=== PATIENT | male | born 1985 | race Caucasian/White ===

== ENCOUNTER 2017-03-06 18:19 | Inpatient (IN) | payer OTHER ==
[~2017-03-06] VITALS: Ht 172.7 cm; Wt 101.5 kg
[~2017-03-06 18:19] MED LIST: IBUP-1542 PO; RIFA300C3 PO; SULF1TAB7 PO
[2017-03-06] MEDS ORDERED: ACETAMINOPHEN 500 MG TAB PO STA (21:19)
[2017-03-06] MEDS ORDERED: SOD CHLORIDE 0.9% 1,000 ML IV STA (21:42)
[2017-03-06] MEDS ORDERED: morphine 4 MG/ML VIAL IV STA (21:52)
[2017-03-06] MEDS ORDERED: ONDANSETRON 4 MG INJ IV STA (21:52)
[2017-03-06 22:07] LABS: ADD SCAN DIFF NO
[2017-03-06 22:15] LABS: ABNORMAL IP MESSAGE 1; HEMATOCRIT 44.5 % (42.0-52.0); HEMOGLOBIN 15.5 g/dl (14.0-18.0); MEAN CORPUSCULAR HEMOGLOBIN 31.1 pg (29.0-33.0); MEAN CORPUSCULAR HGB CONC 34.8 g/dl (32.0-37.0); MEAN CORPUSCULAR VOLUME 89.4 fl (82.0-101.0); MEAN PLATELET VOLUME 11.6 fl (7.4-10.4); PLATELET COUNT 164 10^3/UL (140-415); RED BLOOD COUNT 4.98 10^6/ul (4.70-6.10); RED CELL DISTRIBUTION WIDTH 12.4 % (11.5-14.5); WHITE BLOOD COUNT 20.3 10^3/ul (4.8-10.8)
[2017-03-06] MEDS ORDERED: ACETAMINOPHEN 325 MG TAB PO STA (22:18)
[2017-03-06] MEDS ORDERED: SODIUM CHLORIDE 0.9% 1L BAG IV* STA (22:18)
[2017-03-06 22:20] LABS: ALBUMIN 4.8 g/dl (3.3-4.9); INR 1.04; PROTIME 13.6 Sec (12.2-14.2); PT RATIO 1.1
[2017-03-06 22:21] LABS: CHLORIDE 95 mmol/L (97-110); PARTIAL THROMBOPLASTIN TIME 30.6 Sec (25.0-35.0); POTASSIUM 3.6 mmol/L (3.5-5.1); SODIUM 136 mmol/L (135-144)
[2017-03-06 22:23] LABS: ALBUMIN/GLOBULIN RATIO 1.23; AMYLASE 64 U/L (11-123); ANION GAP 19 (8-16); ASPARTATE AMINO TRANSFERASE 42 IU/L (15-46); BILIRUBIN,INDIRECT 0.8 mg/dl (0-1.1); BILIRUBIN,TOTAL 0.8 mg/dl (0.2-1.3); BLOOD UREA NITROGEN 12 mg/dl (7-20); CARBON DIOXIDE 26 mmol/L (21-31); CREATININE 0.88 mg/dl (0.61-1.24); TOTAL PROTEIN 8.7 g/dl (6.1-8.1)
[2017-03-06 22:24] LABS: ALANINE AMINOTRANSFERASE 57 IU/L (13-69); ALKALINE PHOSPHATASE 92 IU/L (42-121); CALCIUM 9.4 mg/dl (8.4-10.2); GLUCOSE 129 mg/dl (70-220)
[2017-03-06 22:35] LABS: TROPONIN-I < 0.012 ng/ml (0.00-0.12)
[2017-03-06 22:40] LABS: EOSINOPHILS # 0.2 10^3/ul (0.0-0.5); NEUTROPHIL # 18.1 10^3/ul (1.6-7.5)
--- NOTE | 2017-03-06 23:18 | RADRPT ---
PROCEDURE: CT ABDOMEN/PELVIS WITHOUT CONTRAST CLINICAL INDICATION: 31-year-old male with bilateral flank pain. TECHNIQUE: The study was performed utilizing a GE [employer] VCT 64-slice CT scanner. Direct axia l sections were obtained through the abdomen and pelvis without the use of intravenous contrast mate rial. Sagittal and coronal reformations were obtained. One or more of the following dose reduction t echniques were utilized: automated exposure control, adjustment of the mA and/or kV according to pat ient's size or use of iterative reconstruction technique. The images were [facility] CTD/vol = 19.5 mGy; Total Exam DLP = 1272.7 mGy-cm. COMPARISON: None. FINDINGS: The lung bases are unremarkable. There is no evidence for significant pleural effusion. The liver has a normal size and contour. There is diffuse decreased density throughout the liver consistent w ith fatty infiltration without focal areas of abnormal density. No intrahepatic nor extrahepatic lisy iary ductal dilatation is seen. There is dependent increased density within the gallbladder presumab ly representing sludge without significant wall thickening or pericholecystic fluid. There is no ev idence for calcified gallstones. The pancreas is without areas of abnormal attenuation. The spleen is identified and has a normal size without abnormal density. The adrenal glands are unremarkable. The kidneys are without abnormal density. No hydroureteronephrosis nor nephroureterolithiasis is melanie dent. The urinary bladder contains urine. There is no evidence for bowel obstruction. The appendix is visualized and is without abnormal thickening or surrounding inflammatory reaction. There is no significant pelvic free fluid. The prostate is not enlarged. The aortoiliac vessels are without an eurysmal dilatation. There are minimal bilateral inguinal hernias containing fat. The osseous struct ures are intact. IMPRESSION: 1. Diffuse fatty infiltration of the liver. 2. Probable layering sludge within the gallbladder. 3. No CT evidence for obstructive uropathy or renal calculi. 4. No CT evidence for appendicitis. 5. Minimal bilateral inguinal hernias containing fat. .Victor Hugo Larson MD, MD Date Time Electronically viewed and signed by .Victor Hugo Larson MD, MD on 03/06/2017 23:18 .Lito
[2017-03-06] MEDS ORDERED: CEFTRIAXONE 1 GM/50 ML (PMX) 50 ML IVPB STA (23:35)
[2017-03-07 00:08] LABS: ADD UMIC YES; URINE BILIRUBIN (Dip) 1+ (NEGATIVE); URINE BLOOD (Dip) 3+ (NEGATIVE); URINE COLOR YELLOW (YELLOW); URINE GLUCOSE (Dip) NEGATIVE (NEGATIVE); URINE KETONES (Dip) NEGATIVE (NEGATIVE); URINE LEUKOCYTE ESTERASE (Dip) NEGATIVE (NEGATIVE); URINE NITRITE (Dip) NEGATIVE (NEGATIVE); URINE TOTAL PROTEIN (Dip) 1+ (NEGATIVE); URINE UROBILINOGEN (Dip) 0.2 E.U./dL (0.1-1.0)
[2017-03-07 00:18] VITALS: TEMP 99.4
[2017-03-07 00:18] LABS: ICTOTEST NEGATIVE (NEGATIVE); SQUAMOUS EPITHELIAL CELL,UR FEW
[2017-03-07 00:19] LABS: BACTERIA,URINE RARE; MUCUS,URINE MODERATE
--- NOTE | 2017-03-07 00:23 | ERA ---
ER Documentation Chief Complaint Date/Time DATE: 03/07/17 TIME: 00:22 Chief Complaint back pain x 1 day, fever HPI Back pain for 1 day along with fever. He has had bilateral flank pain. Worse on the right. No nausea no vomiting. Pain is mild to moderate intensity. Fevers that started yesterday and got progressively worse. No other current complaints. Patient does have history of diabetes. ROS All systems reviewed and are negative except as per history of present illness. Medications Home Meds Discontinued Scripts Ibuprofen* (Ibuprofen*) 600 Mg Tablet, 600 MG PO Q6H Y for PA, #30 TAB Prov:BERT MUSE GUM DIPPER 08/25/15 Rifampin* (Rifampin*) 300 Mg Capsule, 300 MG PO BID, #6 CAP Prov:BERT MUSE GUM DIPPER 08/25/15 Sulfamethoxazole-Trimethoprim* (Bactrim* DS) 800-160 Mg Tab, 1 TAB PO BID for 10 Days, TAB Prov:BERT MUSE NP 08/25/15 Allergies Allergies: Coded Allergies: No Known Allergies (Verified Allergy, Unknown, 03/06/17) PMhx/Soc History of Surgery: No Anesthesia Reaction: No Hx Neurological Disorder: No Hx Respiratory Disorders: No Hx Cardiac Disorders: No Hx Psychiatric Problems: No Hx Miscellaneous Medical Probl: No Hx Alcohol Use: Yes Hx Substance Use: No Hx Tobacco Use: Yes Smoking Status: Current every day smoker Physical Exam Vitals Vital Signs Date Time Temp Pulse Resp B/P Pulse Ox O2 Delivery O2 Flow Rate FiO2 03/07/17 00:18 99.4 110 18 116/80 96 2.0 03/06/17 22:22 101.5 117 24 116/76 95 Room Air 03/06/17 21:25 103.2 139 17 133/89 96 Room Air 03/06/17 18:46 101.9 140 20 136/93 100 Physical Exam Const: [] Head: Atraumatic Eyes: Normal Conjunctiva ENT: Normal External Ears, Nose and Mouth. Neck: Full range of motion..~ No meningismus. Resp: Clear to auscultation bilaterally Cardio: Regular rate and rhythm, no murmurs Abd: Soft, non tender, non distended. Normal bowel sounds Skin: No petechiae or rashes Back: No midline or flank tenderness Ext: No cyanosis, or edema Neur: Awake and alert Psych: Normal Mood and Affect Result Diagram: 03/06/17214903/06/172149 Results 24 hrs Laboratory Tests Test 03/06/17 21:50 White Blood Count 20.310^3/ul Red Blood Count 4.9810^6/ul Hemoglobin 15.5g/dl Hematocrit 44.5% Mean Corpuscular Volume 89.4fl Mean Corpuscular Hemoglobin 31.1pg Mean Corpuscular Hemoglobin Concent 34.8g/dl Red Cell Distribution Width 12.4% Platelet Count 95575^3/UL Mean Platelet Volume 11.6fl Neutrophils % 89.0% Lymphocytes % 5.0% Monocytes % 5.0% Eosinophils % 1.0% Neutrophils # 18.110^3/ul Lymphocytes # 1.010^3/ul Monocytes # 1.010^3/ul Eosinophils # 0.210^3/ul Prothrombin Time 13.6Sec Prothrombin Time Ratio 1.1 INR International Normalized Ratio 1.04 Activated Partial Thromboplast Time 30.6Sec Urine Color YELLOW Urine Clarity SL HAZY Urine pH 5.5 Urine Specific Mayer 1.025 Urine Ketones NEGATIVE Urine Nitrite NEGATIVE Urine Bilirubin 1+ Urine Ictotest NEGATIVE Urine Urobilinogen 0.2 E.U./dL Urine Leukocyte Esterase NEGATIVE Urine Microscopic RBC 2-5/HPF Urine Microscopic WBC 0-2/HPF Urine Squamous Epithelial Cells FEW Urine Bacteria RARE Urine Mucus MODERATE Urine Hemoglobin 3+ Urine Glucose NEGATIVE% Urine Total Protein 1+ Sodium Level 136mmol/L Potassium Level 3.6mmol/L Chloride Level 95mmol/L Carbon Dioxide Level 26mmol/L Anion Gap 19 Blood Urea Nitrogen 12mg/dl Creatinine 0.88mg/dl Glucose Level 129mg/dl Lactic Acid Level 1.4mmol/L Calcium Level 9.4mg/dl Total Bilirubin 0.8mg/dl Direct Bilirubin 0.00mg/dl Indirect Bilirubin 0.8mg/dl Aspartate Amino Transf (AST/SGOT) 42IU/L Alanine Aminotransferase (ALT/SGPT) 57IU/L Alkaline Phosphatase 92IU/L Troponin I < 0.012ng/ml Total Protein 8.7g/dl Albumin 4.8g/dl Globulin 3.90g/dl Albumin/Globulin Ratio 1.23 Amylase Level 64U/L Lipase 45U/L Current Medications Medications (Trade) Dose Ordered Sig/Fercho Route PRN Reason Start Time Stop Time Status Last Admin Dose Admin Acetaminophen 1000 mg 1,000 mg ONCE STAT PO 03/06/17 21:19 03/06/17 21:20 DC 03/06/17 21:30 Sodium Chloride (NS) 1,000 ml @ 1,000 mls/hr Q1H STAT IV 03/06/17 21:42 03/06/17 22:41 DC 03/06/17 21:47 Morphine Sulfate (morphine) 4 mg ONCE STAT IV 03/06/17 21:52 03/06/17 21:53 DC 03/06/17 22:05 Ondansetron HCl (Zofran Inj) 4 mg ONCE STAT IV 03/06/17 21:52 03/06/17 21:53 DC 03/06/17 22:04 Sodium Chloride (NS) 3,150 ml BOLUS OVER 2 HOURS STAT IV* 03/06/17 22:18 03/06/17 22:20 DC 03/06/17 22:34 Acetaminophen 650 mg 650 mg ONCE STAT PO 03/06/17 22:18 03/06/17 22:20 DC Ceftriaxone Sodium (Rocephin) 50 ml @ 100 mls/hr ONCE STAT IVPB 03/06/17 23:35 03/07/17 00:04 DC 03/06/17 23:55 Procedures/MDM Medical decision-makin-year-old male looks to be early pyelonephritis. No evidence of sepsis. Patient started on Rocephin. Cultures pending. Fluids given. Patient admitted to Dr. Flores. Chest X-ray 1V Interpreted by me: Soft Tissue: No acute abnormalities Bones: No acute abnormalities Mediastinum/Cardiac Silhouette/Lungs: No acute abnormalities EKG: Rate/Rhythm: [Normal Sinus Rhythm] QRS, ST, T-waves: [No changes consistent w/ acute ischemia] Impression: [No evidence of ischemia or arrhythmia] Departure Diagnosis: Primary Impression: Pyelonephritis Condition: Serious ANGELO SANDERS Mar 07, 2017 00:23
[2017-03-07 00:30] VITALS: BP 133/70; PULSE 110; RESP 20
[2017-03-07 00:37] VITALS: BP 133/70; RESP 18
[2017-03-07 00:44] VITALS: Ht 172.7 cm; Wt 101.5 kg
[2017-03-07] MEDS ORDERED: ACETAMINOPHEN 325 MG TAB PO PRN (01:30)
[2017-03-07] MEDS ORDERED: ONDANSETRON 4 MG INJ IV PRN (01:30)
[2017-03-07] MEDS: DEXTROSE 5%-0.9% NACL 1,000 ML IV SCH ×2 (01:36→16:02)
[2017-03-07] MEDS: morphine 4 MG/ML VIAL IV PRN ×2 (01:37→23:08)
[2017-03-07 06:04] LABS: ADD SCAN DIFF NO
[2017-03-07 06:20] LABS: ABNORMAL IP MESSAGE 1; BASOPHILS % 0.1 % (0.0-2.0); HEMATOCRIT 41.2 % (42.0-52.0); HEMOGLOBIN 14.1 g/dl (14.0-18.0); LYMPHOCYTES # 1.6 10^3/ul (0.8-2.9); MEAN CORPUSCULAR HEMOGLOBIN 30.9 pg (29.0-33.0); MEAN CORPUSCULAR HGB CONC 34.2 g/dl (32.0-37.0); MEAN CORPUSCULAR VOLUME 90.4 fl (82.0-101.0); MEAN PLATELET VOLUME 11.3 fl (7.4-10.4); MONOCYTE # 1.5 10^3/ul (0.3-0.9); MONOCYTES % 8.8 % (0.0-11.0); NEUTROPHIL # 14.2 10^3/ul (1.6-7.5); NEUTROPHILS % 81.3 % (39.0-77.0); PLATELET COUNT 144 10^3/UL (140-415); RED BLOOD COUNT 4.56 10^6/ul (4.70-6.10); RED CELL DISTRIBUTION WIDTH 12.6 % (11.5-14.5); WHITE BLOOD COUNT 17.5 10^3/ul (4.8-10.8)
[2017-03-07 06:34] LABS: POTASSIUM 3.5 mmol/L (3.5-5.1)
[2017-03-07 06:36] LABS: ALBUMIN/GLOBULIN RATIO 1.14; BILIRUBIN,INDIRECT 0.6 mg/dl (0-1.1); BILIRUBIN,TOTAL 0.6 mg/dl (0.2-1.3); CREATININE 0.74 mg/dl (0.61-1.24); TOTAL PROTEIN 7.5 g/dl (6.1-8.1)
[2017-03-07 06:37] LABS: CALCIUM 8.5 mg/dl (8.4-10.2)
[2017-03-07] MEDS: PANTOPRAZOLE (EC) 40 MG TAB PO SCH (06:38)
[2017-03-07 07:25] VITALS: BP 127/67; RESP 19
[2017-03-07] MEDS: GUAIFENESIN/DM 5ML CUP PO PRN ×2 (17:15→23:07)
--- NOTE | 2017-03-07 18:44 | QN ---
Documentation Comment [id number] JO KENNEDY MD Mar 07, 2017 18:44
--- NOTE | 2017-03-07 19:20 | HP ---
DATE OF ADMISSION: 03/06/2017 HISTORY OF PRESENT ILLNESS: The patient is a 31-year-old male who has no significant past medical h istory, presented to this hospital complaining of abdominal pain, back pain, cough, URI symptoms. T he patient, in the ER, was seen, noted to have leukocytosis. WBC 20.7, hematocrit 44.5, platelet co unt of 164. The patient's potassium ____.[address] scan of the abdomen and pelvis done shows diffu se fatty infiltration of the liver, biliary sludge the gallbladder, no CT evidence for obstructive u ropathy, no CT evidence for appendicitis, minimal bilateral inguinal hernias containing fat. The waqas riley's chest x-ray has been ordered, which is not done. The patient is going to be admitted for fu rther management. PAST MEDICAL HISTORY: Diabetes, hypertension. ALLERGY HISTORY: NEGATIVE. FAMILY HISTORY: Negative. SOCIAL HISTORY: Negative at this point. REVIEW OF SYSTEMS: HEENT: Unremarkable. RESPIRATORY: URI symptoms. CARDIOVASCULAR: No chest pain, palpitation. ABDOMEN AND BACK: Pain resolving. PHYSICAL EXAMINATION: GENERAL: Overweight, obese male, awake, alert. VITAL SIGNS: Stable. HEAD: Atraumatic, normocephalic. Pupils equal, reactive to light. NECK: Supple. No JVD. LUNGS: Clear. CARDIOVASCULAR: S1, S2 normal. ABDOMEN: Soft, nontender. Bowel sounds present. No palpable mass or hepatosplenomegaly. No guard ing, rebound tenderness. EXTREMITIES: No cyanosis, clubbing, or edema. CENTRAL NERVOUS SYSTEM: The patient is awake, alert. No focal deficit. LABORATORY DATA: As mentioned above. IMPRESSION: 1. Systemic inflammatory response syndrome. 2. Status post abdominal pain. 3. Fatty liver. 4. The patient has leukocytosis. 5. The patient has obesity. PLAN: To give this patient IV fluid, empiric antibiotic, follow up on laboratory data. Chest x-ray will be checked. Orders were done. Dictated By: JO ROSALES/NTS Conf#: [id number] DID#: [id number]
[2017-03-07 20:03] VITALS: BP 128/70; RESP 20
--- NOTE | 2017-03-07 22:13 | RADRPT ---
PROCEDURE: XR Chest. CLINICAL INDICATION: Shortness of breath TECHNIQUE: PA and Lateral views of the chest were obtained. COMPARISON: None. FINDINGS: The cardiomediastinal silhouette is within normal limits of size .. Atherosclerotic calcification of the aorta. The lungs are clear without pleural effusion or focal consolidation. No pneumothorax. The osseous structures and soft tissues are unremarkable. IMPRESSION: 1. No evidence for active cardiopulmonary disease. RPTAT:AAJJ Physician Nerissa Date Time Electronically viewed and signed by Physician Nerissa on 03/07/2017 22:12 YNES/
[2017-03-07] MEDS: CEFTRIAXONE 1 GM/50 ML (PMX) 50 ML IVPB SCH (23:07)
[2017-03-08] MEDS: PANTOPRAZOLE (EC) 40 MG TAB PO SCH (05:48)
[2017-03-08] MEDS: DEXTROSE 5%-0.9% NACL 1,000 ML IV SCH ×3 (05:48→23:16)
[2017-03-08 05:49] LABS: ADD SCAN DIFF NO
[2017-03-08 05:54] LABS: BASOPHILS % 0.2 % (0.0-2.0); EOSINOPHILS # 0.1 10^3/ul (0.0-0.5); EOSINOPHILS % 0.7 % (0.0-7.0); HEMATOCRIT 41.2 % (42.0-52.0); HEMOGLOBIN 13.9 g/dl (14.0-18.0); LYMPHOCYTES # 1.6 10^3/ul (0.8-2.9); LYMPHOCYTES % 19.4 % (15.0-51.0); MEAN CORPUSCULAR HEMOGLOBIN 30.8 pg (29.0-33.0); MEAN CORPUSCULAR HGB CONC 33.7 g/dl (32.0-37.0); MEAN CORPUSCULAR VOLUME 91.4 fl (82.0-101.0); MONOCYTE # 1.1 10^3/ul (0.3-0.9); MONOCYTES % 13.9 % (0.0-11.0); NEUTROPHIL # 5.4 10^3/ul (1.6-7.5); NEUTROPHILS % 65.4 % (39.0-77.0); PLATELET COUNT 139 10^3/UL (140-415); RED BLOOD COUNT 4.51 10^6/ul (4.70-6.10); RED CELL DISTRIBUTION WIDTH 12.7 % (11.5-14.5); WHITE BLOOD COUNT 8.2 10^3/ul (4.8-10.8)
[2017-03-08 06:18] LABS: ALBUMIN 3.8 g/dl (3.3-4.9); ALBUMIN/GLOBULIN RATIO 1.05; BILIRUBIN,INDIRECT 0.1 mg/dl (0-1.1); BILIRUBIN,TOTAL 0.1 mg/dl (0.2-1.3); CALCIUM 8.8 mg/dl (8.4-10.2); CREATININE 0.69 mg/dl (0.61-1.24); POTASSIUM 3.9 mmol/L (3.5-5.1); TOTAL PROTEIN 7.4 g/dl (6.1-8.1)
[2017-03-08 07:52] VITALS: BP 119/58; RESP 18
--- NOTE | 2017-03-08 08:51 | PQ ---
Date/Time of Note Date/Time of Note DATE: 03/08/17 TIME: 08:[address] Kennedy , A review of the medical record found a need for documentation clarification. Patient admitted with pyelonephritis per ED record and SIRS is documented in H& P. patient admitted with WBC 20.3, Temp 103.2, P 140 and RR 24. patient is being treated with IV ceftriaxone. Please further specify the diagnosis of SIRS. Thank you Please clarify a diagnosis being treated. To facilitate accurate and complete coding, please bobbi ( x ) the suspected diagnosis that apply: ( x ) SIRS with Sepsis ( x ) SIRS without sepsis ( ) Pyelonephritis ( ) Other ( ) Unable to determine Please provide your response by clicking edit document,~ making~ your choice ( x ), click ok/save and finally click sign. You may also~ document your response~ on~ your progress notes. Thank you for your time. Deanna Jones MD,CCS,CCDS Clinical Meteorology Instructor Health Information Management, CDI and Coding Services Room # [id number] - [address]~ [address] DEANNA JONES Mar 08, 2017 08:51 JO KENNEDY MD Mar 08, 2017 15:49
--- NOTE | 2017-03-08 18:25 | PN ---
Date/Time of Note Date/Time of Note DATE: 03/08/17 TIME: 18:24 Assessment/Plan VTE Prophylaxis VTE Prophylaxis Intervention: other Lines/Catheters IV [facility] (from [facility] Peripheral IV Urinary Cath still in place: No Assessment/Plan Chief Complaint/Hosp Course IMPRESSION: 1. Systemic inflammatory response syndrome. 2. Status post abdominal pain. 3. Fatty liver. 4. The patient has leukocytosis. 5. The patient has obesity. plan ck labs stable Problems: Subjective 24 Hr Interval Summary Gastrointestinal: no complaints Genitourinary: no complaints Exam/Review of Systems Vital Signs Vitals Vital Signs Date Time Temp Pulse Resp B/P Pulse Ox O2 Delivery O2 Flow Rate FiO2 03/08/17 07:52 98.2 90 18 119/58 96 03/07/17 00:30 Room Air 03/07/17 00:18 2.0 Intake and Output 03/07/17 03/07/17 03/08/17 15:00 23:00 07:00 Intake Total 1590 ml 1250 ml Balance 1590 ml 1250 ml Exam Respiratory: clear to auscultation Cardiovascular: regular rate and rhythm Gastrointestinal: soft Musculoskeletal: nl extremities to inspection Extremities: normal pulses Results Result Diagram: 03/08/17 0450 03/08/17 0450 Results 24 hrs Laboratory Tests Test 03/08/17 04:50 White Blood Count 8.2 # Red Blood Count 4.51 L Hemoglobin 13.9 L Hematocrit 41.2 L Mean Corpuscular Volume 91.4 Mean Corpuscular Hemoglobin 30.8 Mean Corpuscular Hemoglobin Concent 33.7 Red Cell Distribution Width 12.7 Platelet Count 139 L Mean Platelet Volume 11.0 H Neutrophils % 65.4 Lymphocytes % 19.4 Monocytes % 13.9 H Eosinophils % 0.7 Basophils % 0.2 Nucleated Red Blood Cells % 0.0 Neutrophils # 5.4 Lymphocytes # 1.6 Monocytes # 1.1 H Eosinophils # 0.1 Basophils # 0.0 Nucleated Red Blood Cells # 0.0 Sodium Level 139 Potassium Level 3.9 Chloride Level 105 Carbon Dioxide Level 28 Anion Gap 10 # Blood Urea Nitrogen 4 L Creatinine 0.69 Glucose Level 98 # Calcium Level 8.8 Total Bilirubin 0.1 L Direct Bilirubin 0.00 Indirect Bilirubin 0.1 Aspartate Amino Transf (AST/SGOT) 53 H Alanine Aminotransferase (ALT/SGPT) 52 Alkaline Phosphatase 84 Total Protein 7.4 Albumin 3.8 Globulin 3.60 H Albumin/Globulin Ratio 1.05 Medications Medications Current Medications Dextrose/Sodium Chloride (D5-NS) 1,000 ml @ 70 mls/hr [id number] IV Last administered on 03/08/17 05:48; Admin Dose 70 MLS/HR; Start 03/07/17 at 01:30 Pantoprazole 40 mg 40 mg DAILY@06 PO Last administered on 03/08/17 05:48; Admin Dose 40 MG; Start 03/07/17 at 06:00 Ceftriaxone Sodium (Rocephin) 50 ml @ 100 mls/hr Q24H IVPB Last administered on 03/07/17 23:07; Admin Dose 100 MLS/HR; Start 03/07/17 at 23:00 Acetaminophen (Tylenol Tab) 650 mg Q6H PRN PO PAIN AND OR ELEVATED TEMP; Start 03/07/17 at 01:30 Morphine Sulfate (morphine) 3 mg Q3H PRN IV PAIN Last administered on 23:08; Admin Dose 3 MG; Start 03/07/17 at 01:30 Ondansetron HCl (Zofran Inj) 4 mg Q6H PRN IV NAUSEA AND/OR VOMITING; Start at 01:30 Guaifenesin/ Dextromethorphan (Robitussin Dm Liquid Cup) 5 ml Q6H PRN PO COUGH Last administered on 03/07/17 23:07; Admin Dose 5 ML; Start 03/07/17 at 17:00 JO KENNEDY MD Mar 08, 2017 18:25
[2017-03-08 19:06] LABS: CHOL/HDL RATIO 9.9 RATIO
[2017-03-08 19:52] VITALS: BP 138/61; RESP 20
[2017-03-08] MEDS: CEFTRIAXONE 1 GM/50 ML (PMX) 50 ML IVPB SCH (23:17)
[2017-03-08] MEDS: morphine 4 MG/ML VIAL IV PRN (23:22)
[2017-03-09] MEDS: PANTOPRAZOLE (EC) 40 MG TAB PO SCH (06:32)
[2017-03-09 08:09] VITALS: BP 128/72; RESP 18
--- NOTE | 2017-03-09 13:06 | PQ ---
Date/Time of Note Date/Time of Note DATE: 03/09/17 TIME: 13:[address] Kennedy , A review of the medical record found a need for documentation clarification. Patient admitted with pyelonephritis per ED record and SIRS is documented in H& P. patient admitted with WBC 20.3, Temp 103.2, P 140 and RR 24. patient is being treated with IV ceftriaxone. Please further specify the diagnosis of SIRS. Thank you Please clarify a diagnosis being treated. To facilitate accurate and complete coding, please bobbi ( x ) the suspected diagnosis that apply: ( ) SIRS with Sepsis ( x ) SIRS ( ) Pyelonephritis ( ) Other ( ) Unable to determine Please provide your response by clicking edit document,~ making~ your choice ( x ), click ok/save and finally click sign. You may also~ document your response~ on~ your progress notes. Thank you for your time. Deanna Jones MD,CCS,CCDS Clinical Java Systems Analyst Health Information Management, CDI and Coding Services Room # 1525 - [address]~ [address] DEANNA JONES Mar 09, 2017 13:06 JO KENNEDY MD Mar 09, 2017 18:09
--- NOTE | 2017-03-09 13:42 | PN ---
Date/Time of Note Date/Time of Note DATE: 03/09/17 TIME: 13:41 Assessment/Plan VTE Prophylaxis VTE Prophylaxis Intervention: ambulation Lines/Catheters [facility] Peripheral IV Urinary Cath still in place: No Assessment/Plan Chief Complaint/Hosp Course 1. Systemic inflammatory response syndrome. 2. Status post abdominal pain. 3. Fatty liver. 4. The patient has leukocytosis. 5. The patient has obesity. Problems: Assessment/Plan 1. discharge home with a/b levaquin for 10 days Exam/Review of Systems Vital Signs Vitals Vital Signs Date Time Temp Pulse Resp B/P Pulse Ox O2 Delivery O2 Flow Rate FiO2 03/09/17 08:09 97.9 79 18 128/72 96 03/07/17 00:30 Room Air 03/07/17 00:18 2.0 Intake and Output 03/08/17 03/08/17 03/09/17 15:00 23:00 07:00 Intake Total 840 ml 1460 ml Balance 840 ml 1460 ml Results Result Diagram: 03/08/17 0450 03/08/17 0450 Medications Medications Current Medications Dextrose/Sodium Chloride (D5-NS) 1,000 ml @ 70 mls/hr [id number] IV Last administered on 03/08/17 23:16; Admin Dose 70 MLS/HR; Start 03/07/17 at 01:30 Pantoprazole 40 mg 40 mg DAILY@06 PO Last administered on 03/09/17 06:32; Admin Dose 40 MG; Start 03/07/17 at 06:00 Ceftriaxone Sodium (Rocephin) 50 ml @ 100 mls/hr Q24H IVPB Last administered on 03/08/17 23:17; Admin Dose 100 MLS/HR; Start 03/07/17 at 23:00 Acetaminophen (Tylenol Tab) 650 mg Q6H PRN PO PAIN AND OR ELEVATED TEMP; Start 03/07/17 at 01:30 Morphine Sulfate (morphine) 3 mg Q3H PRN IV PAIN Last administered on 23:22; Admin Dose 3 MG; Start 03/07/17 at 01:30 Ondansetron HCl (Zofran Inj) 4 mg Q6H PRN IV NAUSEA AND/OR VOMITING; Start at 01:30 Guaifenesin/ Dextromethorphan (Robitussin Dm Liquid Cup) 5 ml Q6H PRN PO COUGH Last administered on 03/07/17t 23:07; Admin Dose 5 ML; Start 03/07/17 at 17:00 NORA RIVERA Mar 09, 2017 13:42 NORA RIVERA Mar 09, 2017 13:42
--- NOTE | 2017-03-09 13:43 | PDOCDIS ---
Discharge Instructions CONDITION Patient Condition: Good HOME CARE INSTRUCTIONS: Diet Instructions: Regular ACTIVITY: Activity Restrictions: Slowly Increase Activity Rest between Activity Bathing Restrictions: Shower FOLLOW UP/APPOINTMENTS Appointments 1. Primary care provider 1 week SCHOOL/WORK RELEASE May return to School/Work on: March 12, 2017 May return to School/Work with: With Restrictions NORA RIVERA Mar 09, 2017 13:43
--- NOTE | 2017-03-12 20:59 | DS ---
Date/Time of Note Date/Time of Note DATE: 03/12/17 TIME: 20:55 Discharge Summary Admission/Discharge Info Admit Date/Time Mar 06, 2017 at 23:51 Discharge Date/Time Mar 09, 2017 at 14:41 Final Diagnosis 1. SIRS without known source 2. Obesity 3. Nicotine dependence 4. Fatty liver Patient Condition: Good Consults none Procedures ECG Hx of Present Illness pt was admitted to hospital, course was unremarkable. Discharge home with Levaquin 500 mg by mouth for 10 days Hospital Course 1. Systemic inflammatory response syndrome. 2. Status post abdominal pain. 3. Fatty liver. 4. The patient has leukocytosis. 5. The patient has obesity. Home Meds Discontinued Scripts Ibuprofen* (Ibuprofen*) 600 Mg Tablet, 600 MG PO Q6H Y for PA, #30 TAB Prov:BERT MUSE NP 08/25/15 Rifampin* (Rifampin*) 300 Mg Capsule, 300 MG PO BID, #6 CAP Prov:BERT MUSE NP 08/25/15 Sulfamethoxazole-Trimethoprim* (Bactrim* DS) 800-160 Mg Tab, 1 TAB PO BID for 10 Days, TAB Prov:BERT MUSE NP 08/25/15 Pending Labs none NORA RIVERA March 12, 2017 20:59
== END 2017-03-09 14:41 | disposition home or self-care (01) | DRG 690 ==
LOC: E/R 18:19 → MS1 23:51
PROVIDERS: ADMIT Internal Medicine Nephrology; ATTEND Internal Medicine Nephrology
DX: N12 Tubulo-interstitial nephritis, not specified as acute or chronic (principal); R65.10 Systemic inflammatory response syndrome (SIRS) of non-infectious origin without acute organ dysfunction; K76.0 Fatty (change of) liver, not elsewhere classified; E66.9 Obesity, unspecified; Z68.34 Body mass index [BMI] 34.0-34.9, adult; F17.210 Nicotine dependence, cigarettes, uncomplicated
CPT/HCPCS: 36415; 71020; 74176; 80053; 80061; 81001; 81003; 82150; 83036; 83605; 83690; 84484; 85025; 85610; 85730; 87040; 87086; 93005; 96361; 96365; 96375; J0696; J2270; J2405; J7030; J7042

== ENCOUNTER 2018-07-15 11:01 | Emergency (ER) | END 2018-07-15 13:59 | disposition home or self-care (01) ==